=== PATIENT | female | born 1985 | race Caucasian/White ===

== ENCOUNTER 2016-11-16 20:16 | Emergency (ER) | payer OTHER ==
[~2016-11-16] VITALS: Ht 157.5 cm; Wt 86.4 kg
[2016-11-16 20:18] VITALS: BP 141/86; PULSE 91; TEMP 98.7
[2016-11-16] MEDS ORDERED: COUMADIN 1010 MG/TAB PO (20:23)
[2016-11-16] MEDS ORDERED: DOSTINEX0.5 MG/TAB (20:53)
== END 2016-11-16 20:58 | disposition home or self-care (01) ==
LOC: COL.ER 20:16
DX: S61.211A Laceration without foreign body of left index finger without damage to nail, initial encounter (principal); Z79.01 Long term (current) use of anticoagulants; W26.0XXA Contact with knife, initial encounter; Y92.009 Unspecified place in unspecified non-institutional (private) residence as the place of occurrence of the external cause